=== PATIENT | male | born 1970 | race Caucasian/White ===

== ENCOUNTER → 2017-05-31 | Outpatient (REF) ==
[~2017-05-31] MED LIST: ASPIRIN 32325 MG/TAB PO; LASIX 20MG TABL20 MG PO; NIACIN50 MG PO; PLAVIX 75MG TAB75 MG PO; ZESTRIL 20MG TA20 MG PO
== END ==
LOC: ZLAB.WCH 18:05
DX: Z01.89 Encounter for other specified special examinations (principal)

== ENCOUNTER → 2017-08-03 | Outpatient (REF) ==
[2017-08-03 19:04] LABS: THYROID STIMULATING HORMONE 1.71 uIU/mL (0.465-4.680)
== END ==
LOC: ZLAB.WCH 18:07
PROVIDERS: Family Medicine
DX: Z01.89 Encounter for other specified special examinations (principal)

== ENCOUNTER → 2018-08-29 | Outpatient (REF) | LOC: ZLAB.WCH 08:27 | DX: Z01.89 Encounter for other specified special examinations (principal) ==

== ENCOUNTER 2020-06-26 12:33 | Day surgery (SDC) | payer MEDICARE, OTHER ==
[~2020-06-26] VITALS: Ht 185.4 cm; Wt 131.0 kg
[2020-06-26] VITALS (10 sets, daily range): BP systolic 173–201; BP diastolic 97–115; PULSE 67–84; TEMP 97.9
[~2020-06-26 12:33] MED LIST changes: -ASPIRIN 32325 MG/TAB PO; +ASPIRIN E.C. 8181 MG PO
[2020-06-26] MEDS ORDERED: LIPITOR20 MG PO (12:55)
[2020-06-26] MEDS ORDERED: PROAIR HFA0.09 MG/AC IH (12:55)
[2020-06-26] MEDS ORDERED: BYSTOLIC10 MG PO (12:56)
[2020-06-26] MEDS ORDERED: GLUCOPHAGE500 MG/TAB PO (12:57)
[2020-06-26] MEDS ORDERED: LEXAPRO 10MG10 MG PO (12:57)
[2020-06-26] MEDS ORDERED: VALIUM 5MG T5 MG/TAB PO (12:58)
[2020-06-26] MEDS ORDERED: NITROSTAT0.4 MG/TAB SL (12:58)
[2020-06-26] MEDS ORDERED: XARELTO20 MG PO (13:00)
[2020-06-26 13:23] LABS: HEMATOCRIT 43.4 % (42.0-52.0); HEMOGLOBIN 14.4 g/dl (13.5-18.0); MEAN CELL VOLUME 99 fl (80.0-100.0); MEAN CORPUSCULAR HEMOGLOBIN 33 pg (27.0-31.0); MEAN CORPUSCULAR HGB CONC 33 g/dl (33.0-37.0); MEAN PLATELET VOLUME 11.9 fl (7.4-10.4); PLATELET COUNT 153 K/mm3 (130-400); RED BLOOD COUNT 4.38 M/mm3 (4.20-5.60); REDCELL DISTRIBUTION WIDTH-CV 14.5 % (11.5-14.5)
[2020-06-26 13:27] LABS: INR 1.4 (0.8-3.0); PROTHROMBIN TIME 15.2 SECONDS (9.7-12.8)
[2020-06-26 13:36] LABS: CALCIUM 8.8 mg/dL (8.4-10.2); CREATININE, serum 0.66 (0.66-1.25); POTASSIUM 3.9 mmol/L (3.4-5.0)
--- NOTE | 2020-06-26 15:13 | NUR ---
SEE MERGE DOCUMENTATION FOR MEDICATION ADMINISTRATION TIMES AND INTRA/POST PROCEDURE SEDATION ASSESSMENTS. RIGHT HAND BARBEAU TEST POSITIVE.
--- NOTE | 2020-06-26 16:50 | NUR ---
pt is back from cath lab nurse. pt developed a hematoma to rt forearm after cath procedure in cath lab nurse. This was treated with manual pressure and massage of forearm. Dr. Mary applied compression wrap to rt forearm while pt was at cath lab nurse. PT is awake and alert with compression dressing in place. radial and ulnar pulses are audible with doppler. rt forearm is reportedly softer than it was when hematoma was detected. plan for q15 doppler checks of ulnar and radial pulses. dinner ordered for patient. call light at bs.
--- NOTE | 2020-06-26 16:53 | NUR ---
Pt transferred to at this time. Bedside handoff to LUCA Landis. Pt right arm remains wrapped with QUINTEN bandage. Forearm noted softer than when assessed in [facility]. Cap refill <3 sec and SPO2 pleth wave noted on monitor with sensor on right hand first finger. Both ulnar and radial arteries located easily with doppler distal to QUINTEN wrap. Pt denies numbness/tingling in hand; reports hand feels "better" than when in [facility]. VS's within normal limits. MD orders for frequent checking of pulses with doppler and massaging of forearm relayed to Sabiha SEGOVIA. Pt to stay for observation in for 4 hrs per MD. All questions answered at this time.
--- NOTE | 2020-06-26 17:15 | NUR ---
Dr. Mary to bs. anali wrap reapplied. verbal order received for hydralazine 5 mg IV q30 min up to 20 mg total for sbp >180. radial and ulnar pulses audible with doppler with anali compression dressing in place. pt instructed to squeeze rt hand frequently to encourage venous return.
--- NOTE | 2020-06-26 20:15 | NUR ---
Pt ready for departure. I have reviewed dc/rx and fu instructions with pt who verbalized understanding. Presley wrap was removed at 1905. No swelling or hematoma formation has occurred. left ulnar puncture site was covered with bandaid. IV dc'd with cath intact, dressing applied. PT is ambulatory in unit with steady gait. I called Dr. Mary to report persistent hypertension at time of discharge. Pt states will take his lisinopril when he gets home, and per Dr. Mary I will call in an RX for bystolic 10 mg daily x 3 doses for pt this weekend as pt reports he is out of this med. pt to exit via wheelchair.
== END 2020-06-26 20:27 | disposition home or self-care (01) ==
LOC: COL.CAR 12:33
PROVIDERS: Internal Medicine Interventional Cardiology
DX: I25.10 Atherosclerotic heart disease of native coronary artery without angina pectoris (principal); I73.9 Peripheral vascular disease, unspecified; R94.39 Abnormal result of other cardiovascular function study; I11.0 Hypertensive heart disease with heart failure; I50.9 Heart failure, unspecified; E11.9 Type 2 diabetes mellitus without complications; I25.2 Old myocardial infarction; Z95.5 Presence of coronary angioplasty implant and graft; Z79.84 Long term (current) use of oral hypoglycemic drugs; Z79.82 Long term (current) use of aspirin; Z79.01 Long term (current) use of anticoagulants
CPT/HCPCS: C1769; C1887; J0360; J1644; J2250; J3010; Q9967